=== PATIENT | female | born 1950 | race Caucasian/White ===

== ENCOUNTER 2023-08-27 13:34 | Emergency (ER) | payer OTHER, SELFPAY ==
[2023-08-27 13:37] VITALS: BP 130/73
--- NOTE | 2023-08-27 14:00 | ED.GENMED ---
History of Present Illness
<Yoselin Modi PA-C - Last Filed: 08/27/23 20:58>
General
Chief Complaint: Cough
Source: patient and family
Exam Limitations: none
Time Seen by Provider: 08/27/23 13:59
Nursing documentation reviewed up to this point in time: agreed with
Travel History
Have you had any contact with someone who has COVID-19?: No
Do you have any symptoms of coronavirus? Fever > 100 degrees, chills, cough, shortness of breath, sore throat, loss of taste or smell, muscle aches, or headache?: No
History of Present Illness
History of Present Illness:
73-year-old female with a past medical history of asthma, hyperlipidemia, hypothyroidism, presenting to the emergency department today with coughing for a little over a week. Patient states that she is 11 days status post hip replacement, and she
started to develop cough few days after the operation. Patient states that she was sent home with incentive spirometry, however patient states that she has not been using it as much as she should. Patient denies any fevers or chills, nausea or
vomiting, abdominal pain. Patient states that she is coughing so much that she cannot sleep, and had thick mucus production. Patient denies chest pain, shortness of breath. Patient states that she uses Symbicort daily for her asthma and uses
albuterol as needed. Patient states that she has been using her albuterol as needed which temporarily helps her cough, however then her symptoms returned.
Past History
<Yoselin Modi PA-C - Last Filed: 08/27/23 20:58>
Past History
ED Past Medical History: Arrthythmia (SVT now with pacemaker), Asthma and Hypercholesterolemia
ED Past Surgical History: Cardiac (Pacemaker) and Gynecological (Lumpectomy)
Social History
Tobacco: Non-smoker
Alcohol: Occasional
Personal:
Living: with family
Employment: Not employed
Review of Systems
<Yoselin Modi PA-C - Last Filed: 08/27/23 20:58>
Review of Systems
All Other Systems: ROS reviewed and negative except as documented in HPI and ROS
Phy Exam
<Yoselin Modi PA-C - Last Filed: 08/27/23 20:58>
Physical Exam
Physical Exam:
General: Patient is well-appearing and in no acute distress
Skin: Warm and dry no rashes or lesions
Head: Normocephalic, atraumatic
Eyes: Bilateral conjunctiva clear
Neck: No cervical lymphadenopathy
Throat: No pharyngeal erythema, no tonsillar hypertrophy
Cardiac: Regular rate and rhythm, no murmur
Pulmonary: Normal respiratory effort, diffuse rhonchi heard on exam, no audible wheezes
Abdomen: No abdominal tenderness, no distention
Musculoskeletal: Patient has swelling at her left hip. No tenderness palpation of bilateral calves, negative Homans' sign bilaterally.
Neuro: AAOx3.
Course
<Yoselin Modi PA-C - Last Filed: 08/27/23 20:58>
Orders/Labs/Results
Orders:
Orders
08/27/23 14:08
Ipratropium/Albuterol Sulfate [Duoneb] 3 ml INH R NOW STA
CR Chest - 2 Views Urgent
Comment:
Reason For Exam: cough, shortness of breath
08/27/23 14:18
COVID-19 Antigen Urgent
Source: Nasal Swab
Complete Blood Count/With Diff Urgent
Comprehensive Metabolic Panel Urgent
Influenza A+B Rapid Molecular Urgent
VICTORINO Source: Nasal Swab
Specimen Description:
08/27/23 15:12
CT Chest Pe Study Urgent
Comment:
Reason For Exam: shortness of breath, leg swelling
Abnormal Lab Results
03/16/24
14:18
RBC 3.63 L 10^6/uL
(4.20-5.40)
Hgb 10.8 L g/dL
(12.0-16.0)
Hct 32.7 L %
(37.0-47.0)
Plt Count 443 H 10^3/uL
(130-400)
Abs Immat Gran (auto) 0.1 H 10^3/uL
(0-0.05)
Absolute Neuts (auto) 6.7 H 10^3/uL
(1.4-6.5)
Absolute Lymphs (auto) 1.0 L 10^3/uL
(1.2-3.4)
Absolute Monos (auto) 0.8 H 10^3/uL
(0.1-0.6)
Immature Gran % 0.7 H %
(0-0.5)
Neutrophils % 75.4 H %
(42.2-75.2)
Lymphocytes % 11.1 L %
(20.5-51.1)
BUN 19 H mg/dl
(7-17)
Glucose 102 H mg/dl
(70-99)
AST 46 H U/L
(14-36)
ALT 42 H U/L
(0-35)
Total Protein 6.2 L g/dl
(6.3-8.2)
08/27/23 14:18
08/27/23 14:18
Vital Signs
Initial and Last Documented VS:
Initial Vital Signs
Temp Pulse Resp BP Pulse Ox
98.5 F 98 18 130/73 98
08/27/23 13:37 08/27/23 13:37 08/27/23 13:37 08/27/23 13:37 08/27/23 13:37
Last Documented Vital Signs
Temp Pulse Resp BP Pulse Ox
98.5 F 83 18 133/67 97
08/27/23 13:37 08/27/23 18:00 08/27/23 18:00 08/27/23 17:15 08/27/23 18:00
<Juve Epps MD - Last Filed: 08/27/23 15:19>
Orders/Labs/Results
Orders:
Orders
08/27/23 14:08
Ipratropium/Albuterol Sulfate [Duoneb] 3 ml INH R NOW STA
CR Chest - 2 Views Urgent
Comment:
Reason For Exam: cough, shortness of breath
08/27/23 14:18
COVID-19 Antigen Urgent
Source: Nasal Swab
Complete Blood Count/With Diff Urgent
Comprehensive Metabolic Panel Urgent
Influenza A+B Rapid Molecular Urgent
VICTORINO Source: Nasal Swab
Specimen Description:
08/27/23 15:12
CT Chest Pe Study Urgent
Comment:
Reason For Exam: shortness of breath, leg swelling
Abnormal Lab Results
08/27/23
14:18
RBC 3.63 L 10^6/uL
(4.20-5.40)
Hgb 10.8 L g/dL
(12.0-16.0)
Hct 32.7 L %
(37.0-47.0)
Plt Count 443 H 10^3/uL
(130-400)
Abs Immat Gran (auto) 0.1 H 10^3/uL
(0-0.05)
Absolute Neuts (auto) 6.7 H 10^3/uL
(1.4-6.5)
Absolute Lymphs (auto) 1.0 L 10^3/uL
(1.2-3.4)
Absolute Monos (auto) 0.8 H 10^3/uL
(0.1-0.6)
Immature Gran % 0.7 H %
(0-0.5)
Neutrophils % 75.4 H %
(42.2-75.2)
Lymphocytes % 11.1 L %
(20.5-51.1)
BUN 19 H mg/dl
(7-17)
Glucose 102 H mg/dl
(70-99)
AST 46 H U/L
(14-36)
ALT 42 H U/L
(0-35)
Total Protein 6.2 L g/dl
(6.3-8.2)
08/27/23 14:18
08/27/23 14:18
Vital Signs
Initial and Last Documented VS:
Initial Vital Signs
Temp Pulse Resp BP Pulse Ox
98.5 F 98 18 130/73 98
08/27/23 13:37 08/27/23 13:37 08/27/23 13:37 08/27/23 13:37 08/27/23 13:37
Last Documented Vital Signs
Temp Pulse Resp BP Pulse Ox
98.5 F 83 18 133/67 97
08/27/23 13:37 08/27/23 18:00 08/27/23 18:00 08/27/23 17:15 08/27/23 18:00
<Yoselin Modi PA-C - Last Filed: 08/27/23 20:58>
MDM/Problems Addressed
Differential Diagnosis Includes:
Differentials include PE, acute bronchitis, pneumonia, pneumonitis, upper restaurant tract infection
MDM/Problems Addressed:
Cough
Chronic conditions affecting care: HTN and Arrhythmia
Acute Exacerbation and/or Progression of Chronic Illness: HTN and Asthma
<Yoselin Modi PA-C - Last Filed: 08/27/23 20:58>
*Critical Care Note
Total Time (30-74mins, 75-104mins- exclusive of procedures): Not Applicable
<Yoselin Modi PA-C - Last Filed: 08/27/23 20:58>
Patient Management
Escalation/DeEscalation of care consider admission/obs:
73-year-old female with a past medical history of asthma, hyperlipidemia, hypothyroidism, presenting to the emergency department today with coughing for a little over a week. Patient also has occasional shortness of breath with this. Patient does
have asthma at baseline, and she uses Symbicort daily along with albuterol rescue inhaler. She has been using her albuterol rescue inhaler, however symptoms do return after short period time. Patient is 11 days status post hip replacement. Here
in the emergency department, patient's vital signs are stable, and patient is afebrile. Her CBC is unremarkable, and her CMP is unremarkable as well. Considering patient has some left hip swelling, has shortness of breath, CT PE study was done
which was negative for any acute clot. Negative for pneumonia. Suspect patient's current symptoms are due to bronchitis/respiratory tract infection. Patient was given a DuoNeb treatment here in the emergency department, and patient states that
this significantly helped her symptoms. I wrote a prescription for patient to have ampules with a DuoNeb at home, she does have a nebulizer machine at home. Patient is stable for discharge, patient will follow-up with her primary care provider to
ensure resolution of her symptoms.
ED Attending Note
<Yoselin Modi PA-C - Last Filed: 08/27/23 20:58>
-
Portions of this chart may have been created with voice recognition software.� Occasional wrong word or��sound alike� substitutions may have occurred due to the inherent limitations of voice recognition software.
<Juve Epps MD - Last Filed: 08/27/23 15:19>
ED Attending Note
Patient seen and examined by attending physician: Yes
I performed the substantive portion of visit, reviewed & personally made and approve the management plan that is documented in note by myself or ENA.: Yes
ED Attending Note:
73-year-old female hip replacement 11 days ago. 2 days after the hip replacement patient developed a cough. Cough has become annoying more severe some sputum. No shortness of breath or pleuritic chest pain. Improvement after nebulizers.
On exam patient is nontoxic in no distress. Lungs are clear and equal. Heart regular rate and rhythm no murmur. Abdomen soft. Perfusing well. Good pulse ox. Mild swelling to the left lower leg.
COVID-negative flu negative x-ray negative labs stable. Slight drop in hemoglobin related to her recent surgery.
However with the onset 2 days after her surgery and left leg swelling a PE study will be done. If negative will be sent home with inhalers to follow-up
Discharge Plan
Departure
Patient Disposition: Home (Routine Discharge)
Date of Disposition: 08/27/23
Time of Disposition: 17:57
Patient with high blood pressure during this ER visit?: Yes
Condition: Good
Discharge Problem:
Upper respiratory infection, Cough
Instructions: Viral Upper Respiratory Infection, Adult (DC), Cough, Adult (DC)
Prescriptions:
New
ipratropium-albuterol 0.5 mg-3 mg(2.5 mg base)/3 mL solution for nebulization
3 ml inhalation QID PRN (Reason: shortness of breath or wheezing) Qty: 90 0RF
No Action
atorvastatin 40 MG tablet
40 mg PO QPM
venlafaxine 75 MG capsule,extended release 24hr
150 mg PO DAILY
levothyroxine [Levoxyl] 100 MCG tablet
88 mcg PO DAILY
loratadine 10 MG tablet
10 mg PO DAILY
calcium carbonate-vitamin D3 [Calcium 500 + D] 1 EACH tablet
1 ea PO DAILY
Dulera 1 PUFF HFA aerosol inhaler
2 puff IH BID
[id number] serr [Osteo Bi-Flex (5-Loxin)] 1 EACH tablet
1 ea PO DAILY
ipratropium-albuterol 3 ML solution for nebulization
3 ml inhalation Q6H Qty: 40 1RF
amlodipine 5 mg Tablet
5 mg PO DAILY
budesonide 0.5 mg/2 mL Suspension For Nebulization
0.5 mg INHALATION DAILY
budesonide-formoterol [Symbicort] 80-4.5 mcg/actuation Hfa Aerosol Inhaler
2 puff INHALATION BID
oxycodone-acetaminophen [Percocet] 5-325 mg tablet
1 tab PO Q4HPRN PRN (Reason: pain) Qty: 10 0RF
Referrals:
Bernadette Kim DO [Family Provider] -
Activity Restrictions/Additional Instructions:
I have sent the nebulization solution to your pharmacy. You can use one 3 mL vial in your nebulizer machine as needed for coughing/wheezing. The recommended dose of DuoNeb is one 3 ml vial administered 4 times per day via nebulization with up to 2
additional 3 ml doses allowed per day, if needed. Please do not use your albuterol inhaler during this time.
Please return to the ER should you experience shortness of breath, chest pain, dizziness, weakness, or other signs or symptoms concerning to you.
Please follow up with your surgeon and your primary care provider.
Interventions
Interventions:
*Risk Screen - Suicide Last Done: 08/27/23 14:10
*General Assessment Last Done: 08/27/23 13:37
*Neglect/Abuse Screening Last Done: 08/27/23 14:10
ED- Fall Risk Assessment Last Done: 08/27/23 14:10
*ED COVID-19 Vaccine History Last Done: 08/27/23 13:37
*Nursing Disposition Last Done: 08/27/23 18:43
ED- Pulmonary Assessment Last Done: 08/27/23 14:16
Discharge Date and Time
Discharge Date/Time: 08/27/23 18:43
[2023-08-27 14:09] VITALS: BMI 26.6
[2023-08-27 14:13] VITALS: BP 130/69
[2023-08-27 14:36] LABS: % Basophils 0.7 % (0-2); % Eosinophils 3.7 % (0-6); % Immature Granulocytes 0.7 % (0-0.5); % Lymphocytes 11.1 % (20.5-51.1); % Monocytes 8.4 % (1.7-9.3); % Neutrophils 75.4 % (42.2-75.2); Absolute Basophils 0.1 10^3/uL (0-0.2); Absolute Eosinophils 0.3 10^3/uL (0-0.7); Absolute Immature Granulocytes 0.1 10^3/uL (0-0.05); Absolute Monocytes 0.8 10^3/uL (0.1-0.6); Absolute Neutrophils 6.7 10^3/uL (1.4-6.5); Hematocrit 32.7 % (37.0-47.0); Hemoglobin 10.8 g/dL (12.0-16.0); Mean Corpuscular Hgb 29.8 pg (27.0-31.0); Mean Corpuscular Volume 90.1 fL (81.0-99.0); Mean Platelet Volume 8.8 fL (7.4-10.4); Nucleated Red Blood Cells % 0 %; Platelet Count 443 10^3/uL (130-400); Red Blood Cell Count 3.63 10^6/uL (4.20-5.40); Red Cell Dist. Width 13.2 % (11.5-14.5); White Blood Cell Count 8.9 10^3/uL (4.8-10.8)
[2023-08-27 14:48] LABS: ALT (SGPT) 42 U/L (0-35); AST (SGOT) 46 U/L (14-36); Albumin 3.6 g/dl (3.5-5.0); Alkaline Phosphatase 89 U/L (38-126); Blood Urea Nitrogen 19 mg/dl (7-17); Calcium 9.2 mg/dl (8.4-10.2); Carbon Dioxide 29 mmol/L (22-30); Chloride 102 mmol/L (98-107); Estimated Creatinine Clearance 71 ml/min; Glucose 102 mg/dl (70-99); Potassium 4.2 mmol/L (3.5-5.1); Sodium 138 mmol/L (135-145); Total Bilirubin 0.4 mg/dl (0.2-1.3); Total Protein 6.2 g/dl (6.3-8.2); eGFR > 60.00
[2023-08-27] MEDS: DUONEB 3 ML INH (14:50)
[2023-08-27 14:52] LABS: COVID-19 Antigen Negative (Negative)
[2023-08-27 15:04] VITALS: BP 120/67
[2023-08-27 16:00] VITALS: BP 117/64
[2023-08-27 17:12] VITALS: BP 134/59
[2023-08-27 17:15] VITALS: BP 133/67
== END 2023-08-27 18:43 | disposition home or self-care (01) ==
LOC: EMR 13:34
PROVIDERS: Physician Assistant; EMERGENCY PHYSICIAN Emergency Medicine; FAMILY PHYSICIAN Family Medicine
DX: R05.9 Cough, unspecified (principal); J06.9 Acute upper respiratory infection, unspecified; I10 Essential (primary) hypertension; J45.909 Unspecified asthma, uncomplicated; E78.00 Pure hypercholesterolemia, unspecified; E03.9 Hypothyroidism, unspecified
CPT/HCPCS: 99285; 94640; 71046; 71275; 80053; 85025; 87502; 87811; Q9967

== ENCOUNTER → 2023-09-16 09:44 | Outpatient (REF) | payer OTHER, SELFPAY | LOC: WDC 09:44 | PROVIDERS: ATTENDING PHYSICIAN Obstetrics & Gynecology Gynecology; FAMILY PHYSICIAN Family Medicine | DX: R92.2 Inconclusive mammogram (principal) | CPT/HCPCS: 76641 ==

== ENCOUNTER 2023-09-21 12:20 | Day surgery (SDC) | payer OTHER, SELFPAY ==
[2023-09-05 10:46] VITALS: BMI 27.5
--- NOTE | 2023-09-05 11:39 | HPS.HSE ---
Family Physician
-
Family Physician: Bernadette Kim DO
Chief Complaint
-
Complete heart block.
History of Present Illness
The patient is a 73 year old female presenting today for complete heart block. The patient previously underwent a dual chamber pacemaker implantation in 2002 and a subsequent pacemaker generator change in 2014 secondary to this diagnosis.
At her most recent office visit in late July 2023, her pacemaker was noted to be approaching elective replacement indication. She will, therefore, undergo a dual chamber pacemaker generator change. She denies any complaints today such as chest
pain, shortness of breath, palpitations, nausea, vomiting, diarrhea, lightheadedness, dizziness, sore throat, or fever.
Medical History
Past Medical History
Past Medical History: Reports Other
Additional Past Medical History:
1. Complete heart block, status post dual chamber pacemaker insertion, 2002, and pacemaker generator change 2014.
2. Hypertension.
3. Hypercholesterolemia.
4. Nonsustained ventricular tachycardia, status post ablation.
5. Atrial tachycardia.
6. Mild to moderate aortic regurgitation.
7. Mild mitral regurgitation.
8. Mild tricuspid regurgitation.
9. Asthma with recent acute exacerbation, improved with medical therapy.
10. GERD.
11. Colon polyps.
12. Chronic constipation.
13. Vertigo.
14. Lumbar degenerative disc disease.
15. Osteoarthritis, status post left total hip arthroplasty 08/16/2023.
16. Right breast cancer, DCIS, 2001, status post right lumpectomy, radiation, and previous Tamoxifen.
17. Melanoma, left shoulder, status post excision.
18. Hypothyroidism.
19. Anxiety.
20. Osteopenia.
21. COVID 19 positive, 08/26/2023, without residual side effects.
22. Thrombocytosis.
Past Surgical History: Reports Other
Additional Past Surgical History:
1. Dual chamber pacemaker insertion.
2. Pacemaker generator change.
3. Supraventricular tachycardia ablation.
4. Sinus surgery.
5. Right lumpectomy.
6. Melanoma excision.
7. Left total hip arthroplasty.
8. Bilateral cataract extraction.
9. Colonoscopy x3.
Social History
Tobacco: Non-smoker
Alcohol: Other (Social alcohol use reported on the weekends. )
Personal:
Living: Other (She lives with her in a 2 story home. )
Family History
Family History: Not pertinent
Allergies / Home Medications
Allergy/Medication List:
Home medications:
1. Acetaminophen 1000 mg p.o. daily.
2. Albuterol sulfate 2 puffs inhaled every 6 hours as needed.
3. Amlodipine 5 mg p.o. daily.
4. Aspirin 81 mg p.o. twice a day for 4 weeks post-hip replacement.
5. Atorvastatin 40 mg p.o. daily.
6. Budesonide 0.5 mg inhaled daily.
7. Symbicort 2 puffs inhaled twice a day.
8. Calcium and Vitamin D3 1 tablet p.o. daily.
9. Artificial tears 1 drop ophthalmic daily as needed.
10. Glucosamine 1 tablet p.o. daily.
11. Ipratropium-albuterol 3 ml inhaler 4 times a day if needed.
12. Levothyroxine 88 mcg p.o. daily.
13. Claritin 10 mg p.o. daily.
14. Lung, Bronchial, and Sinus Health 1 tablet p.o. daily.
15. Mecobalamin 1000 mcg sublingual daily.
16. Pregabalin 50 mcg p.o. daily.
17. Metamucil 1 tbsp p.o. twice a day.
18. Venlafaxine 150 mg p.o. daily.
Allergies: No known allergies.
Review of Systems
-
A 12 point ROS was completed and negative except as noted: Yes
Physical Exam
Vital Signs
Blood pressure 131/71. Heart rate 86. Respirations 18. Pulse ox 98% on room air.
Height 5 feet, 3 inches. Weight 70.3 kg. BMI 27.5.
Physical Exam
General: Well Developed and Well Nourished
HEENT: NormoCephalic, Moist mucous membranes, Atraumatic and PERRLA
Respiratory: Clear
Cardiac: Regular Rhythm and Other (Pacemaker site intact. )
GI: Soft, Non Tender and Non Distended
Musculoskeletal: No Edema and Other (Currently walks with a rolling walker due to recent left total hip arthroplasty. )
Skin: Warm and Dry
Neuro: AO x 3 and Nonfocal/grossly intact
Laboratory Results
-
DIAGNOSTIC STUDIES as of 09/05/2023: White blood cell count 7.6. Hemoglobin 12.7. Platelet count 458,000. Sodium 139. Potassium 3.9. BUN 19. Creatinine 0.8. Glucose 115. Calcium 10.0. Magnesium 2.1. AST 33. ALT 29. Albumin 4.4.
EKG 09/05/2023: Atrial-sensed ventricular-paced rhythm.
Echocardiogram 07/21/2020: Normal left ventricular size and systolic function. No regional wall motion abnormalities are seen. LV ejection fraction is 50% by Salazar's biplane method of discs. Mild concentric left ventricular hypertrophy. Stage I
diastolic dysfunction suggestive of abnormal relaxation. Normal right ventricular size and function. Mitral valve opens normally. Mild mitral regurgitation. Trileaflet aortic valve with normal leaflet excursion. Mild to moderate aortic. Tricuspid
valve opens normally. Mild tricuspid regurgitation. Estimated pulmonary artery pressure of 29 mmHg assuming a right atrial pressure of 3 mmHg. Compared to prior study 10/15/15, obvious apical hypokinesis is not seen.
Impression/Plan
-
IMPRESSION/PLAN:
1. Complete heart block: The patient is in need of a dual chamber pacemaker generator change with Dr. Juve Izaguirre on 09/19/2023. The benefits and risks of the procedure have been explained to the patient. The patient understands these risks
and wishes to proceed.
[2023-09-05 11:40] LABS: % Basophils 1.7 % (0-2); % Eosinophils 5.8 % (0-6); % Immature Granulocytes 0.3 % (0-0.5); % Lymphocytes 14.6 % (20.5-51.1); % Neutrophils 67.6 % (42.2-75.2); Absolute Basophils 0.1 10^3/uL (0-0.2); Absolute Eosinophils 0.4 10^3/uL (0-0.7); Absolute Lymphocytes 1.1 10^3/uL (1.2-3.4); Absolute Monocytes 0.8 10^3/uL (0.1-0.6); Absolute Neutrophils 5.1 10^3/uL (1.4-6.5); Hemoglobin 12.7 g/dL (12.0-16.0); Mean Corp Hgb Conc. 31.8 g/dL (33.0-37.0); Mean Corpuscular Hgb 29.3 pg (27.0-31.0); Mean Corpuscular Volume 92.2 fL (81.0-99.0); Mean Platelet Volume 9.6 fL (7.4-10.4); Nucleated Red Blood Cells % 0 %; Platelet Count 458 10^3/uL (130-400); Red Blood Cell Count 4.34 10^6/uL (4.20-5.40); Red Cell Dist. Width 13.2 % (11.5-14.5); White Blood Cell Count 7.6 10^3/uL (4.8-10.8)
[2023-09-05 11:52] LABS: ALT (SGPT) 29 U/L (0-35); AST (SGOT) 33 U/L (14-36); Albumin 4.4 g/dl (3.5-5.0); Alkaline Phosphatase 104 U/L (38-126); Blood Urea Nitrogen 19 mg/dl (7-17); Carbon Dioxide 28 mmol/L (22-30); Chloride 105 mmol/L (98-107); Estimated Creatinine Clearance 61 ml/min; Glucose 115 mg/dl (70-99); Magnesium 2.1 mg/dl (1.6-2.3); Potassium 3.9 mmol/L (3.5-5.1); Sodium 139 mmol/L (135-145); Total Bilirubin 0.5 mg/dl (0.2-1.3); Total Protein 7.4 g/dl (6.3-8.2); eGFR > 60.00
[2023-09-21] VITALS (19 sets, daily range): BP systolic 79–151; BP diastolic 38–86
--- NOTE | 2023-09-21 15:37 | ITS.CL.PACE ---
[facility] - Pacemaker Implant
Pacemaker Implant
Procedure Report:
Primary Nurses Director: Aditya Izaguirre MD
Procedure Date: 09/21/2023
Name of procedure:
1. Device Revision: Dual Chamber Pacemaker
2. Pulse Generator Change
History:
See H&P for full details.
Patient is a pleasant 73 year old female with a past medical history significant for CHB with DCPPM 2005 gen change 2014, hypertension, HLD who presents for elective generator change for pacemaker [employer]LE [employer].
Methods:
After informed consent was obtained, the patient was brought to the EP laboratory in a postabsorptive, nonsedated state. Peripheral IV access was established. Prophylactic antibiotics were administered prior to incision. Continues ECG, blood
pressure, and pulse oximetry were initiated. Cardioversion patch electrodes were placed on the patient's chest and back. A grounding patch was applied to the skin. Sedation was administered by anesthesia.
The left chest was prepared and draped in a sterile fashion. A 'time out' was called. Local anesthesia was injected in the subcutaneous tissue in the infraclavicular area. An incision was made into the chronic scar. With cautious attention to the
leads, the subcutaneous tissue was dissected the level of the device capsule. The capsule was opened, the device was explanted and disconnected from the leads. The leads were inspected and found to be free of visible defect. The leads were tested
and found to have adequate pacing and sensing parameters, consistent with pre-procedure measurements.
The pocket was revised to accommodate the new device. The pocket was flushed with antibiotic solution and hemostasis was assured. Antibiotic envelope was used. The generator was connected to the leads and placed inside the pocket. The wound was
closed with 3 running layers of absorbable suture and steri-strips were applied to the skin.
Following the procedure, the patient was taken to the recovery area in stable condition. No complications were noted.
Lead parameters and device programming:
- RA Lead ([employer] [place], model: 1488T, SN# [id number]): Sensing 2.6 mV, Pacing threshold 0.75 V at 0.4 ms, Imp 342 Ohm
- RV Lead ([employer], model: 1488T, SN#[id number]): Sensing Dependent, Pacing threshold 1.5 V at 0.4 ms, Imp 399 Ohm
- Device: Medtronic pacemaker model: W1DR01, SN#[id number], programmed DDDR Mode switch on LRL 60 UTR 130
- Explanted device: Medtronic [id number]
Recommendations:
1. Discharge home when stable with instructions for site care
2. Follow-up will be arranged in our office 7-10 days post-discharge for incision check
Humberto Kingsley DO
Clinical Cardiac Electrophysiology
Copy to: Aditya Izaguirre MD; Bernadette Kim DO
== END 2023-09-21 18:59 | disposition home or self-care (01) ==
LOC: CATH 12:20
PROVIDERS: ATTENDING PHYSICIAN Internal Medicine Cardiovascular Disease; FAMILY PHYSICIAN Family Medicine
DX: Z45.010 Encounter for checking and testing of cardiac pacemaker pulse generator [battery] (principal); I44.2 Atrioventricular block, complete; I10 Essential (primary) hypertension; E78.00 Pure hypercholesterolemia, unspecified; I47.20 Ventricular tachycardia, unspecified; I47.19 Other supraventricular tachycardia; I08.1 Rheumatic disorders of both mitral and tricuspid valves; K21.9 Gastro-esophageal reflux disease without esophagitis; Z86.010 Personal history of colon polyps; R42 Dizziness and giddiness; M16.12 Unilateral primary osteoarthritis, left hip; Z85.3 Personal history of malignant neoplasm of breast; Z92.3 Personal history of irradiation; Z85.820 Personal history of malignant melanoma of skin; E03.9 Hypothyroidism, unspecified; F41.9 Anxiety disorder, unspecified; M85.80 Other specified disorders of bone density and structure, unspecified site; Z86.16 Personal history of COVID-19; D75.839 Thrombocytosis, unspecified; J45.909 Unspecified asthma, uncomplicated; I47.10 Supraventricular tachycardia, unspecified
CPT/HCPCS: 33228; 36415; 80053; 83735; 85025; 93005; C1785

== ENCOUNTER → 2023-09-23 15:32 | Outpatient (REF) | payer OTHER, SELFPAY | LOC: RAD 15:32 | PROVIDERS: ATTENDING PHYSICIAN Family Medicine | DX: J45.41 Moderate persistent asthma with (acute) exacerbation (principal) | CPT/HCPCS: 71046 ==

== ENCOUNTER → 2024-02-17 12:34 | Outpatient (REF) | payer OTHER, SELFPAY | LOC: WDC 12:34 | PROVIDERS: ATTENDING PHYSICIAN Obstetrics & Gynecology Gynecology; FAMILY PHYSICIAN Family Medicine | DX: Z12.31 Encounter for screening mammogram for malignant neoplasm of breast (principal) | CPT/HCPCS: 77063; 77067 ==

== ENCOUNTER → 2024-06-09 11:13 | Outpatient (REF) | payer OTHER, SELFPAY | LOC: UCDH 11:13 | PROVIDERS: ATTENDING PHYSICIAN Physician Assistant Medical | DX: J06.9 Acute upper respiratory infection, unspecified (principal) | CPT/HCPCS: 71046 ==

== ENCOUNTER → 2024-09-18 12:59 | Outpatient (REF) | payer OTHER, SELFPAY | LOC: RCS 12:59 | PROVIDERS: ATTENDING PHYSICIAN Internal Medicine Cardiovascular Disease; FAMILY PHYSICIAN Student in an Organized Health Care Education/Training Program | DX: I49.8 Other specified cardiac arrhythmias (principal); I10 Essential (primary) hypertension | CPT/HCPCS: 93306 ==

== ENCOUNTER → 2024-10-17 11:31 | Outpatient (REF) | payer OTHER, SELFPAY | LOC: RAD 11:31 | PROVIDERS: ATTENDING PHYSICIAN Student in an Organized Health Care Education/Training Program | DX: Z87.39 Personal history of other diseases of the musculoskeletal system and connective tissue (principal); M85.89 Other specified disorders of bone density and structure, multiple sites; Z78.0 Asymptomatic menopausal state | CPT/HCPCS: 77080 ==

== ENCOUNTER → 2025-02-20 07:43 | Outpatient (REF) | payer OTHER, SELFPAY | LOC: WDC 07:43 | PROVIDERS: ATTENDING PHYSICIAN Obstetrics & Gynecology Gynecology; FAMILY PHYSICIAN Student in an Organized Health Care Education/Training Program | DX: Z12.31 Encounter for screening mammogram for malignant neoplasm of breast (principal) | CPT/HCPCS: 77063; 77067 ==

== ENCOUNTER 2025-05-11 17:40 | Emergency (ER) | payer OTHER, SELFPAY ==
[2025-05-11 17:42] VITALS: BP 144/91
[2025-05-11 17:57] LABS: Hematocrit 46.9 % (37.0-47.0); Hemoglobin 15.6 g/dL (12.0-16.0); Mean Corp Hgb Conc. 33.3 g/dL (33.0-37.0); Mean Corpuscular Volume 88.2 fL (81.0-99.0); Nucleated Red Blood Cells % 0 %; Platelet Count 307 10^3/uL (130-400); Red Cell Dist. Width 13.8 % (11.5-14.5)
[2025-05-11 18:16] LABS: ALT (SGPT) 32 U/L (0-35); AST (SGOT) 37 U/L (14-36); Albumin 5.1 g/dl (3.5-5.0); Alkaline Phosphatase 103 U/L (38-126); Blood Urea Nitrogen 27 mg/dl (7-17); Calcium 9.9 mg/dl (8.4-10.2); Carbon Dioxide 27 mmol/L (22-30); Chloride 104 mmol/L (98-107); Glucose 153 mg/dl (70-99); Lipase 81 U/L (23-300); Potassium 4.4 mmol/L (3.5-5.1); Sodium 138 mmol/L (135-145); Total Protein 8.4 g/dl (6.3-8.2); eGFR > 60.00
--- NOTE | 2025-05-11 18:29 | ED.GENMED ---
History of Present Illness
General
Chief Complaint: Abdominal Symptoms
Source: patient and spouse
Exam Limitations: none
Time Seen by Provider: 05/11/25 18:20
Nursing documentation reviewed up to this point in time: agreed with
History of Present Illness
History of Present Illness:
Patient is a 75-year-old female who presents to the emergency department for evaluation of vomiting which began today at noon. Patient states she woke up this morning in her normal state of health and was running errands this morning when she began
feeling nauseous. She then describes relatively acute onset vomiting which started around noon. She has had about 7 episodes of vomiting since has been unable to keep down any food or liquid. She denies any abdominal pain. No fever or chills.
No diarrhea. She has been urinating normally without any dysuria or hematuria. No chest pain or shortness of breath. No back pain.
Patient contacted her primary care provider who recommended evaluation in the emergency department.
Of note�she was made aware today that multiple other people who she ate Thanksgiving dinner with, 2 days prior, are sick with similar GI symptoms including vomiting.
Past History
Past History
ED Past Medical History: Arrthythmia (SVT now with pacemaker), Asthma and Hypercholesterolemia
ED Past Surgical History: Cardiac (Pacemaker) and Gynecological (Lumpectomy)
Social History
Tobacco: Non-smoker
Alcohol: Occasional
Personal:
Living: with family
Employment: Not employed
Review of Systems
Review of Systems
Allergies reviewed?: Yes
All Other Systems: ROS reviewed and negative except as documented in HPI and ROS
Phy Exam
Physical Exam
Physical Exam:
Vitals: Mildly hypertensive, otherwise vital signs stable. Afebrile
General: Patient is in no acute distress
Skin: Warm and dry, no rashes or lesions
Head: Normocephalic, atraumatic
Eyes: Sclera nonicteric.
Throat: Protecting airway
Neck: Normal ROM, no cervical spine tenderness, no meningismus
Cardiac: Regular rate and rhythm, no murmurs.
Pulm: Normal respiratory effort. Lungs clear bilaterally
Abdomen: Abdomen soft without any areas of focal tenderness. Specifically no tenderness in right upper quadrant. Negative Garg sign. No CVA tenderness.
Extremities: No evidence of cyanosis or edema
Neuro: AAOx3. Grossly intact
Psychiatric: Normal affect.
Course
Orders/Labs/Results
Orders:
Orders
05/11/25 17:49
Complete Blood Count/With Diff Urgent
Comprehensive Metabolic Panel Urgent
Lipase Urgent
05/11/25 18:46
0.9% Sodium Chloride 500 ml [Nss] 500 ml IV BOLUS
US Abdomen Limited Urgent
Comment:
Reason For Exam: RUQ; intractable vomiting
05/11/25 18:47
Electrocardiogram (*1) Urgent
Reason for Study: QTc Monitoring
EKG- Treatment ONCE
05/11/25 18:48
Ondansetron Injectable [Zofran] 4 mg IV NOW STA
05/11/25 19:15
COVID-19 Antigen Urgent
Source: Nasal Swab
Influenza A+B Rapid Molecular Urgent
VICTORINO Source: Nasal Swab
Specimen Description:
Abnormal Lab Results
05/11/25
17:49
WBC 16.0 H 10^3/uL
(4.8-10.8)
Abs Immat Gran (auto) 0.1 H 10^3/uL
(0-0.05)
Absolute Neuts (auto) 15.0 H 10^3/uL
(1.4-6.5)
Absolute Lymphs (auto) 0.4 L 10^3/uL
(1.2-3.4)
Neutrophils % 93.8 H %
(42.2-75.2)
Lymphocytes % 2.3 L %
(20.5-51.1)
BUN 27 H mg/dl
(7-17)
Glucose 153 H mg/dl
(70-99)
AST 37 H U/L
(14-36)
Total Protein 8.4 H g/dl
(6.3-8.2)
Albumin 5.1 H g/dl
(3.5-5.0)
05/11/25 17:49
05/11/25 17:49
Vital Signs
Initial and Last Documented VS:
Initial Vital Signs
Temp Pulse Resp BP Pulse Ox
97.4 F 94 18 144/91 94
05/11/25 17:42 05/11/25 17:42 05/11/25 17:42 05/11/25 17:42 05/11/25 17:42
Last Documented Vital Signs
Temp Pulse Resp BP Pulse Ox
97.4 F 94 18 144/91 94
05/11/25 17:42 05/11/25 17:42 05/11/25 17:42 05/11/25 17:42 05/11/25 18:30
MDM/Problems Addressed
Differential Diagnosis Includes:
Not limited to: Viral gastroenteritis, other viral illness, gastritis, food poisoning, less likely biliary colic/acute cholecystitis
MDM/Problems Addressed:
75-year-old female with nausea and vomiting today. No fever or abdominal pain. Multiple family/friends with similar symptoms following their Thanksgiving gathering. Vitals and physical exam as above.
Patient very well appearing, in no distress. Abdomen benign. She�s nontoxic appearing.
Labs reveal a leukocytosis which I suspect to be reactive from vomiting. Chemistry panel unremarkable. Ultrasound shows no evidence of acute cholecystitis or biliary etiology.
She is feeling better after IV fluids and zofran. She is tolerating oral intake, including water and crackers.
Suspect viral illness, especially with a recent sick contacts. Very low suspicion for acute intra-abdominal process given benign abdomen.
Patient at this point feels much improved from arrival to ED and comfortable with discharge home. QTC borderline however, I did discuss with my attending � will provide a few doses of PO Zofran, if needed at home. Patient has pacemaker. Advised
patient to stay well hydrated and follow a bland diet. Return precautions discussed.
Chronic conditions affecting care:
N/A
Acute Exacerbation and/or Progression of Chronic Illness:
N/A
*Radiology
Radiology exam reviewed: radiology read reviewed
*Pulse Oximetry
SaO2: 94
Oxygen Mode of Delivery: Room air
Patient hypoxic: no
*EKG
Interpreted by ED Provider?: Yes
EKG Intrepretation Date: 05/11/25
Interpretation: abnormal
Comparison EKG: changes noted
Heart Rate: 91
Rate: normal
Rhythm: av sequential and other
[place]: normal axis
Interval: long QT
QRS Pattern: normal QRS
Ischemia: no ischemia
*Seismograph Operator Helper Interpretation
Rate: Seismograph Operator Helper- N/A
*Critical Care Note
Total Time (30-74mins, 75-104mins- exclusive of procedures): Not Applicable
Data Reviewed
Review of Other/Old Records Reveals: Testing (Cardiac echo from 09/18/2024-EF of 59%)
ED Attending Note
-
Portions of this chart may have been created with voice recognition software.� Occasional wrong word or��sound alike� substitutions may have occurred due to the inherent limitations of voice recognition software.
Discharge Plan
Departure
Patient Disposition: Home (Routine Discharge)
Date of Disposition: 05/11/25
Time of Disposition: 21:40
Patient with high blood pressure during this ER visit?: Yes
Condition: Good
Covid-19: Negative COVID-19
Discharge Problem:
Vomiting
Instructions: Nausea and Vomiting, Adult (DC), BLOOD PRESSURE
Prescriptions:
New
ondansetron 4 mg tablet,disintegrating
4 mg PO Q8H PRN (Reason: nausea and vomiting) Qty: 5 0RF
No Action
atorvastatin 40 MG tablet
40 mg PO DAILY
venlafaxine 75 MG capsule,extended release 24hr
150 mg PO DAILY
levothyroxine [Levoxyl] 100 MCG tablet
88 mcg PO DAILY
calcium carbonate-vitamin D3 [Calcium 500 + D] 1 EACH tablet
1 ea PO DAILY
[id number] serr [Osteo Bi-Flex (5-Loxin)] 1 EACH tablet
1 ea PO DAILY
amlodipine 5 mg Tablet
5 mg PO DAILY
budesonide 0.5 mg/2 mL Suspension For Nebulization
0.5 mg INHALATION DAILY
Rx Instructions:
can do twice daily if needed
budesonide-formoterol [Symbicort] 80-4.5 mcg/actuation Hfa Aerosol Inhaler
2 puff INHALATION BID
Artificial Tears (PF) 0.1-0.3 % Dropperette
1 drp OPHTHALMIC (EYE) DAILYPRN PRN (Reason: dry eye)
mecobalamin (vitamin B12) 1,000 mcg Tablet,Disintegrating
1,000 mcg SUBLINGUAL DAILY
Metamucil 3.4 gram/5.4 gram Powder
1 tbsp PO BID
loratadine [Claritin] 10 mg Tablet
10 mg PO DAILY
acetaminophen [Acetaminophen Extra Strength] 500 mg Tablet
1,000 mg PO Q6H PRN (Reason: pain)
albuterol sulfate 90 mcg/actuation Hfa Aerosol Inhaler
2 puff INHALATION Q6H PRN (Reason: SOB)
Lung, Bronchial, & Sinus
1 tab PO DAILY
prednisone 10 mg Tablets,Dose Pack
10 mg PO DIRECTED
ipratropium-albuterol 0.5 mg-3 mg(2.5 mg base)/3 mL solution for nebulization
3 ml inhalation QID PRN (Reason: shortness of breath or wheezing) Qty: 90 0RF
Referrals:
Malcolm Castro MD [Family Provider, [facility]] - Follow up in 5-7 days
Activity Restrictions/Additional Instructions:
RETURN TO THE EMERGENCY DEPARTMENT WITH ANY FEVER, INTRACTABLE NAUSEA/VOMITING, ABDOMINAL PAIN, PERSISTENT LACK OF APPETITE, DIARRHEA, WORSENING CURRENT SYMPTOMS, OR ANY OTHER CONCERNS
-I suspect your symptoms are likely due to a viral illness.
- As discussed�your white blood cell count was elevated in the emergency department today. This is likely from your vomiting. However, please ensure that this returns to normal with repeat lab work with your primary care provider.
- Your ultrasound showed no acute abnormalities of your gallbladder.
- Follow-up with primary care in 1 week for further evaluation/management to ensure that your symptoms are improving
Monitor your symptoms closely and return to the emergency department with any acute worsening/new symptoms or any other concerns
Interventions
Interventions:
*Risk Screen - Suicide Last Done: 05/11/25 17:42
*General Assessment Last Done: 05/11/25 17:42
*Neglect/Abuse Screening Last Done: 05/11/25 17:42
*ED- Fall Risk Assessment Last Done: 05/11/25 19:37
*ED COVID-19 Vaccine History Last Done: 05/11/25 17:42
*ED Influenza Vaccine History Last Done: 05/11/25 17:42
*Nursing Disposition Last Done: 05/11/25 22:02
QD-Wjaceh-Ouegvwloxi Assessment Last Done: 05/11/25 19:39
Discharge Date and Time
Discharge Date/Time: 05/11/25 22:03
Print Language: YAKUT
[2025-05-11 19:04] VITALS: BMI 28.0
[2025-05-11] MEDS: ZOFRAN 4 MG IV (19:13)
[2025-05-11] MEDS: NSS 500 IV (19:13)
[2025-05-11 19:53] LABS: COVID-19 Antigen Negative (Negative)
== END 2025-05-11 22:03 | disposition home or self-care (01) ==
LOC: EMR 17:40
PROVIDERS: Emergency Medicine; Physician Assistant; EMERGENCY PHYSICIAN Emergency Medicine; FAMILY PHYSICIAN Student in an Organized Health Care Education/Training Program
DX: R11.2 Nausea with vomiting, unspecified (principal); E78.00 Pure hypercholesterolemia, unspecified; J45.909 Unspecified asthma, uncomplicated; Z95.0 Presence of cardiac pacemaker; Z11.52 Encounter for screening for COVID-19
CPT/HCPCS: 96374; 96361; 99284; 76705; 80053; 83690; 85025; 87502; 87811; 93005

== ENCOUNTER → 2025-05-20 12:47 | Outpatient (REF) | payer OTHER, SELFPAY | LOC: WDC 12:47 | PROVIDERS: ATTENDING PHYSICIAN Obstetrics & Gynecology Gynecology; FAMILY PHYSICIAN Student in an Organized Health Care Education/Training Program | DX: R92.2 Inconclusive mammogram (principal); Z85.3 Personal history of malignant neoplasm of breast | CPT/HCPCS: 76641 ==